=== PATIENT | female | born 1990 | race Caucasian/White ===

== ENCOUNTER 2017-04-28 13:42 | Emergency (ER) | payer SELFPAY ==
[2017-04-28] MEDS ORDERED: Ibuprofen TAB* 200 MG PO ONE (14:16)
[2017-04-28] MEDS ORDERED: Azithromycin TAB* 250 MG PO ONE (15:08)
[2017-04-28 15:32] VITALS: BP 125/49
--- NOTE | 2017-04-28 15:34 | ED ---
Jase Ball Jennifer, scribed for Simone Norton on 04/28/17 at 1409 . Influenza-Like Illness - HPI Summary HPI Summary: The patient is a 26 year old female who presents with flu-like symptoms that began last night. She describes that she had body aches and a sore throat last night. This morning, she became lightheaded and lost her hearing. She additionally complains of coughing, headache, sinus pressure, subjective on-off fever. The patient denies chest pain and shortness of breath, as well as drug use, alcohol use, and smoking. - History of Current Complaint Chief Complaint: EDFluSymptoms Time Seen by Provider: 04/28/17 13:53 Hx Obtained From: Patient Onset/Duration: Lasting Hours - began last night Severity: Mild Associated Signs & Symptoms: Negative - Chest pain, shortness of breath, Fever - Subjective, Cough, Sore Throat, Headache - Allergy/Home Medications Allergies/Adverse Reactions: Allergies Allergy/AdvReac Type Severity Reaction Status Date / Time No Known Allergies Allergy Verified 04/28/17 14:43 PMH/Surg Hx/FS Hx/Imm Hx Endocrine/Hematology History: Denies: Hx Diabetes Cardiovascular History: Denies: Hx Hypertension Infectious Disease History: No Infectious Disease History: Denies: Traveled Outside the [place] in Last 30 Days - Family History Known Family History: Positive: Diabetes Negative: Hypertension - Social History Alcohol Use: None Substance Use Type: Reports: None Review of Systems Positive: Fever, Other - Body Aches ENT: Other - Sinus pressure Positive: Sore Throat, Ear Ache Negative: Chest Pain Positive: Cough. Negative: Shortness Of Breath Neurological: Other - Lightheaded Positive: Headache All Other Systems Reviewed And Are Negative: Yes Physical Exam - Summary Physical Exam Summary: Appearance: Well appearing, no pain distress Skin: warm, dry, reflects adequate perfusion Head/face: normal Eyes: EOMI, ALEXA ENT: Swollen tonsils. Red pharynx. White scab on the right tonsil. Neck: supple, non-tender Respiratory: CTA, breath sounds present Cardiovascular: RRR, pulses symmetrical Abdomen: non-tender, soft Bowel: present Musculoskeletal: normal, strength/ROM intact Neuro: normal, sensory motor intact, A&Ox3 Triage Information Reviewed: Yes Vital Signs On Initial Exam: Initial Vitals Temp Pulse Resp BP Pulse Ox 99 F 84 20 129/111 100 01/26/18 13:44 04/28/17 13:44 04/28/17 13:44 04/28/17 13:44 04/28/17 13:44 Vital Signs Reviewed: Yes Diagnostics - Vital Signs Vital Signs Temp Pulse Resp BP Pulse Ox 04/28/17 13:44 99 F 84 20 129/111 100 - Laboratory Lab Results: Lab Results 04/28/17 04/28/17 Range/Units 14:44 14:45 Influenza A (Rapid) Negative (Negative) Influenza B (Rapid) Negative (Negative) Group A Strep Rapid Negative (Negative) Lab Statement: Any lab studies that have been ordered have been reviewed, and results considered in the medical decision making process. Flu Symptom Course/Dx - Course Assessment/Plan: The patient is a 26 year old female who presents with flu-like symptoms that began last night. In the ED course the patient was given Azithromycin and ibuprofen. Rapid Strep and Influenza A & B are negative. The patient is diagnosed with pharyngitis. The patient is instructed to follow up with primary care. The patient is prescribed ibuprofen and azithromycin. - Diagnoses Differential Diagnosis/HQI/PQRI: Positive: Bronchitis, Influenza, Pneumonia, Upper Respiratory Infection Provider Diagnoses: Pharyngitis Discharge - Discharge Plan Condition: Stable Disposition: HOME Prescriptions: Azithromycin TAB* [Zithromax TAB (Z-SIENNA) 250 mg #6 tabs] 250 mg PO DAILY #4 tab Ibuprofen TAB* [Motrin TAB* 600 MG] 600 mg PO Q8H PRN #20 tab MDD 3 PRN Reason: Pain Patient Education Materials: Pharyngitis (ED) Referrals: [facility] [Outside] - 3 Days Additional Instructions: Follow up with your primary care physician in three days. You can use the [facility] physician referral service to find one and make an appointment. Return to the emergency department for any new or worsening symptoms. The documentation as recorded by the Jase bethea Jennifer accurately reflects the service I personally performed and the decisions made by , Simone Norton.
== END 2017-04-28 15:32 | disposition home or self-care (01) ==
LOC: ED 13:42
DX: J02.9 Acute pharyngitis, unspecified (principal)
CPT/HCPCS: 87502; 87651; 99283; A9270-GY